=== PATIENT | female | born 1995 | race Caucasian/White ===

== ENCOUNTER 2017-03-06 15:19 | Emergency (ER) | payer SELFPAY ==
--- NOTE | 2017-03-06 15:57 | EDM.PDOC ---
ED HPI GENERAL MEDICAL PROBLEM - General Chief Complaint: Neuro Symptoms/Deficits Stated Complaint: [facility] Time Seen by Provider: 03/06/17 15:26 Source of Information: Reports: Patient, RN Notes Reviewed History Limitations: Reports: No Limitations - History of Present Illness INITIAL COMMENTS - FREE TEXT/NARRATIVE: The patient states that she was running on a treadmill, when she became dizzy, then fell while trying to get off the treadmill. She states that she struck her head several times, as well as her right arm, but that there was no loss of consciousness. She was brought to the ED by EMS on a backboard with a cervical collar. Here in the ED, she states that she is still feeling a bit dizzy, but denies nausea or visual changes. She states that she has pain to the posterior aspect of her head, and to her posterior neck. She also reports pain to her entire right forearm, from just above the elbow all the way to the wrist. The patient does not have a PCP. Right Arm Pain Score (Numeric/FACES): 10 - Related Data Allergies Allergy/AdvReac Type Severity Reaction Status Date / Time cat dander Allergy Itching Verified 03/06/17 15:31 dog dander Allergy Itching Verified 03/06/17 15:31 seafood Allergy Itching Uncoded 03/06/17 15:31 Home Meds: Home Meds . [No Known Home Meds] 03/06/17 [History] Past Medical History - Past Health History Medical/Surgical History: Denies Medical/Surgical History Social & Family History - Family History Family Medical History: Noncontributory - Tobacco Use Smoking Status *Q: Never Smoker - Caffeine Use Caffeine Use: Reports: Tea - Alcohol Use Alcohol Use History: Yes Alcohol Use Frequency: Socially - Recreational Drug Use Recreational Drug Use: Yes Drug Use in Last 12 Months: Yes Recreational Drug Type: Reports: Marijuana/Hashish (last = September 2016) - Living Situation & Occupation Living situation: Reports: Single, with Family Occupation: Student ([employer]) ED ROS GENERAL - Review of Systems Review Of Systems: See Below Constitutional: Reports: No Symptoms HEENT: Reports: No Symptoms Respiratory: Reports: Other (Chest congestion) Cardiovascular: Reports: No Symptoms Endocrine: Reports: No Symptoms GI/Abdominal: Reports: No Symptoms : Reports: No Symptoms Musculoskeletal: Reports: No Symptoms Skin: Reports: No Symptoms Neurological: Reports: No Symptoms Psychiatric: Reports: No Symptoms Hematologic/Lymphatic: Reports: No Symptoms Immunologic: Reports: No Symptoms ED EXAM, GENERAL - Physical Exam Exam: See Below Exam Limited By: No Limitations General Appearance: Alert, WD/WN, No Apparent Distress Eye Exam: Bilateral Eye: EOMI, Normal Inspection, PERRL Ears: Normal External Exam, Normal Canal, Hearing Grossly Normal Nose: Normal Inspection, No Blood Throat/Mouth: Normal Inspection, Normal Lips, Normal Voice, No Airway Compromise Head: Atraumatic, Normocephalic, Other (Tenderness to the posterior scalp. No palpable swelling.) Neck: Normal Inspection, Tender Lateral, Tender Midline, Other (Cervical collar was replaced after palpating the posterior neck, without cervical motion.) Respiratory/Chest: No Respiratory Distress, Lungs Clear, Normal Breath Sounds, No Accessory Muscle Use Cardiovascular: Normal Peripheral Pulses, Regular Rate, Rhythm, No Gallop, No JVD, No Murmur, No Rub Peripheral Pulses: 4+: Radial (L), Radial (R) GI/Abdominal: Normal Bowel Sounds, Soft, Non-Tender, No Organomegaly, No Distention, No Abnormal Bruit, No Mass (Female) Exam: Deferred Rectal (Female) Exam: Deferred Back Exam: Normal Inspection, Full Range of Motion. No: Paraspinal Tenderness, Vertebral Tenderness Extremities: Normal Inspection, Normal Range of Motion, Non-Tender, Normal Capillary Refill, No Pedal Edema Neurological: Alert, Oriented, CN II-XII Intact, Normal Cognition, No Motor/ Sensory Deficits Psychiatric: Normal Affect Skin Exam: Warm, Dry, Intact, Normal Color, No Rash Course - Vital Signs Last Recorded V/S: Last Vital Signs Temp 36.9 C 03/06/17 15:34 Pulse 122 H 03/06/17 15:34 Resp 20 03/06/17 15:34 BP 143/91 H 03/06/17 15:34 Pulse Ox 96 03/06/17 15:34 Orthostatic Blood Pressure [ 132/83 Supine] - Orders/Labs/Meds Orders: Active Orders 24 hr Category Date Time Status Orthostatic Vital Signs [RC] STAT Care 03/06/17 15:50 Active Ibuprofen [Motrin] Med 03/06/17 17:52 Once 600 mg PO ONETIME ONE Labs: Laboratory Tests 11/13/17 11/13/17 11/13/17 Range/Units 16:10 16:10 16:40 WBC 11.00 H (3.98-10.04) K/mm3 RBC 5.11 (3.98-5.22) M/mm3 Hgb 13.9 (11.2-15.7) gm/L Hct 42.9 (34.1-44.9) % MCV 84.0 (79.4-94.8) fl MCH 27.2 (25.6-32.2) pg MCHC 32.4 (32.2-35.5) g/dl RDW Std Deviation 41.4 (36.4-46.3) fL Plt Count 362 (182-369) K/mm3 MPV 10.2 (9.4-12.3) fl Neutrophils % (Manual) 69 H (40-60) % Band Neutrophils % 0 (0-10) % Lymphocytes % (Manual) 24 (20-40) % Atypical Lymphs % 0 % Monocytes % (Manual) 5 (2-10) % Eosinophils % (Manual) 2 (0.7-5.8) % Basophils % (Manual) 0 L (0.1-1.2) Platelet Estimate Adequate RBC Morph Comment Normal Sodium 138 (136-145) mEq/L Potassium 4.5 (3.5-5.1) mEq/L Chloride 101 (98-107) mEq/L Carbon Dioxide 27 (21-32) mEq/L Anion Gap 14.5 (5-15) BUN 7 (7-18) mg/dL Creatinine 0.8 (0.55-1.02) mg/dL Est Cr Clr Drug Dosing 81.24 mL/min Estimated GFR (MDRD) > 60 (>60) mL/min BUN/Creatinine Ratio 8.8 L (14-18) Glucose 87 (74-106) mg/dL Calcium 9.8 (8.5-10.1) mg/dL Total Bilirubin 0.5 (0.2-1.0) mg/dL AST 14 L (15-37) U/L ALT 22 (14-59) U/L Alkaline Phosphatase 75 (46-116) U/L Total Protein 8.1 (6.4-8.2) g/dl Albumin 3.8 (3.4-5.0) g/dl Globulin 4.3 gm/dL Albumin/Globulin Ratio 0.9 L (1-2) Urine HCG, Qual Negative (NEGATIVE) - Re-Assessments/Exams Free Text/Narrative Re-Assessment/Exam: 03/06/17 15:52 The patient states that she got dizzy while running on a treadmill, then fell off while trying to get off. She states that she struck her head, but that there was no loss of consciousness. She is complaining of dizziness and a posterior headache, but no nausea or visual changes. She is also complaining of posterior neck pain, and is tender on examination. Based on the patient's history and physical examination, she suffered a minor head injury, which, by itself would not qualify for a CT of the head, however, the patient is reporting a headache, and current guidelines indicate that if there is a minor head injury with headache, vomiting, loss of consciousness, amnesia, or alcohol intoxication, that a CT scan of the head is indicated, as these factors make the patient high risk. Similarly, a CT scan of the neck is indicated, as the patient has a mechanism of injury that could have caused a cervical injury, and she resents with pain and tenderness to the posterior neck. 03/06/17 16:00 2-view radiographs of the right forearm appear to be unremarkable. No fractures or dislocations identified. Formal read per the Radiologist pending. 03/06/17 16:30 CT of the head without contrast is read by Dr. Nieves as: 1. Mild sinus findings most likely representing mild chronic sinusitis. 2. No additional abnormality is identified on noncontrast head CT exam. CT of the cervical spine without contrast is read by Dr. Nieves as: 1. No abnormality is identified on CT study of the cervical spine. I will order removal of cervical collar. 03/06/17 16:38 The patient is not orthostatic. 03/06/17 17:52 Test results discussed with the patient and her 2 friends. Today's workup is entirely unremarkable, and does not swing the cause of her dizziness, and she does not appear to have suffered a significant injury from her fall. I'm recommending that she take [id number] Tylenol or ibuprofen as needed for discomfort, that she get plenty of rest tonight, then resume her usual activities tomorrow, even though she will likely be sore. Departure - Departure Time of Disposition: 17:53 Disposition: Home, Self-Care 01 Condition: Good Clinical Impression: Contusion of right lower arm, Neck strain, Headache, Dizzy - Discharge Information Referrals: PCP,Not In Area [Primary Care Provider] - Forms: ED Department Discharge Additional Instructions: You were seen in the emergency room after feeling dizzy and falling off a treadmill. Workup in the ER included blood work, a urine test, positional blood pressure checks, x-rays of your right forearm, a CT scan of your head, and a CT scan of your cervical spine. Your entire workup was unremarkable. You do not have any broken bones or dislocations. You do not have an injury to your brain. You are not dehydrated or volume depleted. You are not anemic. You are not . We recommend that you take [id number] Tylenol or ibuprofen as needed for discomfort. Get plenty of rest tonight, then resume your usual activities tomorrow, even though you will probably be sore. If any other problems, please do not hesitate to return to the ER. - My Orders Last 24 Hours: My Active Orders 03/06/17 15:50 Orthostatic Vital Signs [RC] STAT 03/06/17 17:52 Ibuprofen [Motrin] 600 mg PO ONETIME ONE - Assessment/Plan Last 24 Hours: My Active Orders 03/06/17 15:50 Orthostatic Vital Signs [RC] STAT 03/06/17 17:52 Ibuprofen [Motrin] 600 mg PO ONETIME ONE
--- NOTE | 2017-03-06 16:27 | CT ---
CT cervical spine Technique: Multiple axial sections were obtained from above C1 inferiorly to the bottom of T1. Reconstructed sagittal and coronal images were reviewed. Findings: Visualized mastoid sinuses and middle ear cavities are clear. Posterior skull base is intact. Vertebral body heights and disc spaces are maintained. Vertebral bodies and posterior arches are intact with no fracture being seen. No bony central or bony neural foraminal stenosis is seen. No abnormal subluxation is seen. Impression: 1. No abnormality is identified on CT study of the cervical spine. Diagnostic code #1
--- NOTE | 2017-03-06 16:29 | CT ---
Head CT Technique: Multiple axial sections through the brain were obtained. Intravenous contrast was not utilized. Comparison: No prior intracranial imaging. Findings: Ventricles along with basal cisterns and sulci over the convexities are within normal limits for the patient's age. No abnormal parenchymal densities are seen. No evidence of intracranial hemorrhage. No midline shift or mass effect is seen. No acute calvarial abnormality is seen. Visualized sinuses shows mild mucosal thickening within the maxillary and ethmoid sinuses. No acute calvarial abnormality is identified. Impression: 1. Mild sinus findings most likely representing mild chronic sinusitis. 2. No additional abnormality is identified on noncontrast head CT exam. Diagnostic code #2
--- NOTE | 2017-03-06 17:14 | CR ---
Right forearm: Two views of the right forearm were obtained. Comparison: No prior study. No fracture or other bony abnormality is seen. Impression: 1. No abnormality is identified on two-view right forearm study. Diagnostic code #1
[2017-03-06] MEDS ORDERED: Ibuprofen 600 MG Tab PO ONE (17:52)
[2017-03-06] MEDS ORDERED: Ondansetron 4 MG Tab.DIS PO ONE (18:00)
== END 2017-03-06 18:24 | disposition home or self-care (01) ==
LOC: JD.ED 15:19
DX: S16.1XXA Strain of muscle, fascia and tendon at neck level, initial encounter (principal); S50.11XA Contusion of right forearm, initial encounter; R51 Headache; R42 Dizziness and giddiness; W19.XXXA Unspecified fall, initial encounter; Z91.09 Other allergy status, other than to drugs and biological substances
CPT/HCPCS: 36415; 70450; 72125; 73090; 80053; 81025; 85025; 99285; A9270; 99284